=== PATIENT | male | born 1975 | race Caucasian/White ===

== ENCOUNTER 2018-01-15 01:22 | Emergency (ER) | payer SELFPAY ==
[2018-01-15] MEDS ORDERED: Donnatal Elixir 16.2 MG/5 ML UDCUP ONE ×2 (01:40→07:00)
[2018-01-15] MEDS ORDERED: Mag-Al Plus 1200 MG/1200 MG/120 MG/30 ML UDCUP ONE (01:40)
[2018-01-15] MEDS ORDERED: Ondansetron ODT 4 MG TAB ONE (01:40)
[2018-01-15] MEDS ORDERED: Lidocaine Viscous Sol 2% 15 ml UD Cup ONE (01:40)
[2018-01-15 01:55] LABS: #Basophils 0.2 thou/uL (0.0-0.2); #Eosinphils 0.5 thou/uL (0.0-0.7); #Lymphocytes 3.7 thou/uL (1.20-3.40); #Neutrophils 6.6 thou/uL (1.40-6.50); %Basophils 1.3 % (0.0-1.0); %Eosinophils 4.3 % (0.0-10.0); %Lymphocytes 30.9 % (21.0-51.0); %Monocytes 8.4 % (0.0-10.0); %Neutrophils 55.2 % (42.0-75.0); Hemoglobin 17.1 g/dL (14.0-18.0); Mean Corpuscular Hemoglobin 32.8 pg (27.0-31.0); Mean Corpuscular Volume 93.8 fL (78.0-98.0); Mean Platelet Volume 8.4 fL (7.4-10.4); Platelet Count 330 thou/uL (130-400); RBC Distribution Width 11.1 % (11.5-14.5); Red Blood Cell (RBC) Count 5.21 mill/uL (4.70-6.10); White Blood Cell (WBC) Count 11.9 thou/uL (4.8-10.8)
[2018-01-15] MEDS ORDERED: HYDROcodone/Acetaminophen 5/325 mg Tablet ONE ×2 (02:13→02:42)
[2018-01-15 02:17] LABS: ALT (SGPT) 46 U/L (8-55); AST (SGOT) 26 U/L (5-34); Albumin 4.7 g/dL (3.5-5.0); Alkaline Phosphatase 103 U/L (40-150); Anion Gap 16 mmol/L (10-20); BUN (Urea Nitrogen) 14 mg/dL (8.9-20.6); Calc. Creatinine Clearance 0 mL/min (70-130); Calcium 10.4 mg/dL (7.8-10.44); Carbon Dioxide 23 mmol/L (22-29); Chloride 105 mmol/L (98-107); Estimated GFR-MDRD 74; Glucose 103 mg/dL (70-105); Lipase 8 U/L (8-78); Potassium 4.2 mmol/L (3.5-5.1); Protein, Total 7.7 g/dL (6.0-8.3); Sodium 140 mmol/L (136-145)
[2018-01-15 02:19] LABS: Bilirubin, Total 1.4 mg/dL (0.2-1.2)
== END 2018-01-15 02:46 | disposition home or self-care (01) ==
LOC: MADERS 01:22
DX: K29.70 Gastritis, unspecified, without bleeding (principal); F17.210 Nicotine dependence, cigarettes, uncomplicated; Z87.442 Personal history of urinary calculi
CPT/HCPCS: 80053; 83690; 84484; 85025; 93005; Q0162

== ENCOUNTER 2018-02-05 02:18 | Emergency (ER) | payer SELFPAY ==
[2018-02-05] MEDS ORDERED: Ondansetron ODT 4 MG TAB ONE (02:33)
[2018-02-05] MEDS ORDERED: Lidocaine Viscous Sol 2% 15 ml UD Cup ONE ×2 (02:43→03:37)
[2018-02-05] MEDS ORDERED: Mag-Al Plus 1200 MG/1200 MG/120 MG/30 ML UDCUP ONE ×2 (02:43→03:37)
[2018-02-05] MEDS ORDERED: Promethazine HCl 25 MG/ML VIAL ONE (03:01)
[2018-02-05 03:27] LABS: #Basophils 0.2 thou/uL (0.0-0.2); #Eosinphils 0.1 thou/uL (0.0-0.7); #Lymphocytes 1.9 thou/uL (1.20-3.40); #Monocytes 0.5 thou/uL (0.11-0.59); %Basophils 0.9 % (0.0-1.0); %Eosinophils 0.5 % (0.0-10.0); %Lymphocytes 11.4 % (21.0-51.0); %Monocytes 2.9 % (0.0-10.0); %Neutrophils 84.3 % (42.0-75.0); Hemoglobin 17.5 g/dL (14.0-18.0); Mean Corpuscular HGB CONC 35.7 g/dL (32.0-36.0); Mean Corpuscular Hemoglobin 33.4 pg (27.0-31.0); Mean Corpuscular Volume 93.7 fL (78.0-98.0); Mean Platelet Volume 7.7 fL (7.4-10.4); Platelet Count 328 thou/uL (130-400); RBC Distribution Width 11.2 % (11.5-14.5); Red Blood Cell (RBC) Count 5.23 mill/uL (4.70-6.10); White Blood Cell (WBC) Count 16.6 thou/uL (4.8-10.8)
[2018-02-05 03:37] LABS: Bilirubin Small (Negative); Blood, Urine Moderate (Negative); Glucose, Urine (Dipstick) 100 mg/dL (Negative); Leukocyte Negative (Negative); Nitrite Negative (Negative); Protein, Urine (Dipstick) 100 mg/dL (Neg-Trace); Urobilinogen 0.2 mg/dL (0.2-1.0)
[2018-02-05 03:39] LABS: Clarity Hazy (Clear)
[2018-02-05 03:40] LABS: Specific Gravity, Urine 1.033 (1.002-1.036)
[2018-02-05 03:43] LABS: Bacteria/HPF None Seen HPF (None Seen); Squamous Epithelial 0-3 HPF (0-3); WBC/HPF 0-3 HPF (0-3)
[2018-02-05 03:46] LABS: ALT (SGPT) 52 U/L (8-55); AST (SGOT) 27 U/L (5-34); Albumin 4.6 g/dL (3.5-5.0); Alkaline Phosphatase 94 U/L (40-150); Anion Gap 17 mmol/L (10-20); BUN (Urea Nitrogen) 15 mg/dL (8.9-20.6); Calc. Creatinine Clearance 0 mL/min (70-130); Calcium 10.2 mg/dL (7.8-10.44); Carbon Dioxide 22 mmol/L (22-29); Chloride 108 mmol/L (98-107); Estimated GFR-MDRD 64; Globulin 3.3 g/dL (2.4-3.5); Glucose 128 mg/dL (70-105); Lipase 7 U/L (8-78); Potassium 4.1 mmol/L (3.5-5.1); Protein, Total 7.9 g/dL (6.0-8.3); Sodium 143 mmol/L (136-145)
[2018-02-05] MEDS ORDERED: Morphine 10 MG/ML VIAL ONE (04:00)
[2018-02-05] MEDS ORDERED: Ketorolac Tromethamine 30 MG/ML VIAL ONE (05:26)
--- NOTE | 2018-02-05 07:54 | CT ---
PRELIMINARY REPORT/[facility]/EMERGENTY AFTER-HOURS PROCEDURE CT Abdomen and Pelvis Without Intravenous Contrast EXAM DATE/TIME: 02/05/2018 4:25 AM CLINICAL HISTORY: 42 years old, male; Pain; Abdominal pain; Epigastric; Patient HX: Severe epigastric pain with vomitin g for the last 3 hours; Er doc concerned with possible aaa; Additional info: See above TECHNIQUE: Axial computed tomography images of the abdomen and pelvis without intravenous contrast. All CT scans at this facility use at least one of these dose optimization techniques: automated exposure control; mA and/or kV adjustment per patient size (includes targeted exams where dose is matched to clinical indication); or iterative reconstruction. Coronal reformatted images were created and reviewed. COMPARISON: No relevant prior studies available. FINDINGS: Lower thorax: There is subpleural atelectasis of the dependent portions of the lungs. There are bilat eral upper lobe subpleural nodules. ABDOMEN: Liver: There is a diffuse decrease in hepatic parenchymal density, consistent with mild fatty infiltr ation. Gallbladder and bile ducts: There is a 2.3 cm gallstone at the gallbladder neck. Pancreas: The pancreas appears normal. Spleen: The spleen is normal. Adrenals: The adrenal glands are normal. Kidneys and ureters: The left kidney is normal. There is a 10 x 8mm calculus within the RIGHT renal p alex with mild inflammatory stranding. No significant RIGHT hydronephrosis at this time. Stomach and bowel: The stomach is normal. The duodenum is unremarkable. The colon is collapsed but ot herwise normal. There is no evidence of intestinal perforation or obstruction. Appendix: A normal appendix is identified. PELVIS: Bladder: Unremarkable as visualized. Reproductive: The prostate gland and seminal vesicles are normal. ABDOMEN and PELVIS: Intraperitoneal space: Normal. No free air. No significant fluid collection. Bones/joints: No acute fracture. No dislocation. Soft tissues: Unremarkable. Vasculature: Normal. No abdominal aortic aneurysm. Lymph nodes: Normal. No enlarged lymph nodes. IMPRESSION: 1. There is a 2.3 cm gallstone at the gallbladder neck. If acute cholecystitis is suspected, RIGHT up per quadrant ultrasound may be performed for further characterization. 2. There is a 10 x 8mm calculus within the RIGHT renal pelvis with mild inflammatory stranding. No si gnificant RIGHT hydronephrosis at this time. 3. No abdominal aortic aneurysm. Thank you for allowing us to participate in the care of your patient. Dictated and Authenticated by: Luis Eduardo Nunn MD 02/05/2018 5:04 AM Central Time ([place] & [place]) FINAL REPORT ABDOMEN CT WITHOUT CONTRAST PELVIC CT WITHOUT CONTRAST: History: Abdominal pain. Vomiting. FINDINGS: This report is in agreement with the preliminary report by [facility]. There is CT evidence of cholelithiasi s without CT evidence of cholecystitis. There is right sided obstructive uropathy, mild, secondary a 1.3 cm calculus in the right renal pelvis. Inflammatory change is confined to the pelvis. No signific ant caliceal dilatation or ureteral dilation. Normal caliber appendix. POS: [facility]
[2018-02-05] MEDS ORDERED: Sodium Chloride 0.9% 1,000 ML BAG ONE (14:40)
== END 2018-02-05 07:30 | disposition home or self-care (01) ==
LOC: MADERS 02:18
DX: K80.20 Calculus of gallbladder without cholecystitis without obstruction (principal); N13.2 Hydronephrosis with renal and ureteral calculous obstruction; F17.210 Nicotine dependence, cigarettes, uncomplicated; Z79.899 Other long term (current) drug therapy
CPT/HCPCS: 74176; 80053; 81003; 81015; 83690; 84484; 85025; 93005; 96361; 96374; 96375; J1885; J2270; J2550; J7050; Q0162

== ENCOUNTER 2018-04-22 04:01 | Emergency (ER) | payer SELFPAY ==
[2018-04-22] MEDS ORDERED: Promethazine HCl 25 MG/ML VIAL ONE (04:25)
[2018-04-22] MEDS ORDERED: Ketorolac Tromethamine 30 MG/ML VIAL ONE (04:25)
[2018-04-22] MEDS ORDERED: Sodium Chloride 0.9% 100 ML ONE (04:25)
[2018-04-22 04:34] LABS: #Basophils 0.2 thou/uL (0.0-0.2); #Eosinphils 0.4 thou/uL (0.0-0.7); #Lymphocytes 3.6 thou/uL (1.20-3.40); #Monocytes 0.8 thou/uL (0.11-0.59); %Basophils 1.5 % (0.0-1.0); %Eosinophils 3.8 % (0.0-10.0); %Lymphocytes 32.7 % (21.0-51.0); %Monocytes 7.4 % (0.0-10.0); %Neutrophils 54.5 % (42.0-75.0); Hemoglobin 17.4 g/dL (14.0-18.0); Mean Corpuscular HGB CONC 33.8 g/dL (32.0-36.0); Mean Corpuscular Hemoglobin 32.2 pg (27.0-31.0); Mean Corpuscular Volume 95.4 fL (78.0-98.0); Mean Platelet Volume 8.2 fL (7.4-10.4); Platelet Count 346 thou/uL (130-400); RBC Distribution Width 11.9 % (11.5-14.5); Red Blood Cell (RBC) Count 5.41 mill/uL (4.70-6.10)
[2018-04-22 04:53] LABS: ALT (SGPT) 39 U/L (8-55); AST (SGOT) 22 U/L (5-34); Albumin 4.6 g/dL (3.5-5.0); Alkaline Phosphatase 102 U/L (40-150); Anion Gap 15 mmol/L (10-20); BUN (Urea Nitrogen) 20 mg/dL (8.9-20.6); Bilirubin, Total 1.1 mg/dL (0.2-1.2); Calc. Creatinine Clearance 0 mL/min (70-130); Carbon Dioxide 25 mmol/L (22-29); Chloride 106 mmol/L (98-107); Estimated GFR-MDRD 71; Globulin 3.3 g/dL (2.4-3.5); Glucose 121 mg/dL (70-105); Lipase 27 U/L (8-78); Potassium 3.9 mmol/L (3.5-5.1); Protein, Total 7.9 g/dL (6.0-8.3); Sodium 142 mmol/L (136-145)
[2018-04-22 05:05] LABS: Bilirubin Negative (Negative); Blood, Urine Moderate (Negative); Glucose, Urine (Dipstick) Negative (Negative); Leukocyte Negative (Negative); Nitrite Negative (Negative); Protein, Urine (Dipstick) 100 mg/dL (Neg-Trace); Urobilinogen 0.2 mg/dL (0.2-1.0); pH, Urine 5.5 (5.0-9.0)
[2018-04-22 05:10] LABS: Clarity Hazy (Clear); Specific Gravity, Urine 1.032 (1.002-1.036)
[2018-04-22 05:11] LABS: Bacteria/HPF Rare-Few HPF (None Seen); Squamous Epithelial 0-3 HPF (0-3); WBC/HPF 0-3 HPF (0-3)
[2018-04-22 05:12] LABS: Amphetamine Not Detected (NotDetected); Barbiturates Screen Not Detected (NotDetected); Benzodiazepine Screen Not Detected (NotDetected); Cocaine Metabolite Screen Not Detected (NotDetected); Medtox Control Line Valid? VALID (VALID); Methadone Not Detected (NotDetected); Methamphetamine Not Detected (NotDetected); Opiate Screen Not Detected (NotDetected); Oxycodone Screen Not Detected (NotDetected); Phencyclidine (PCP) Not Detected (NotDetected); THC/Cannabinoid Screen Not Detected (NotDetected); Tricyclic Screen Not Detected (NotDetected)
--- NOTE | 2018-04-22 09:09 | RAD ---
ACUTE ABDOMINAL SERIES: DATE: 04/22/2018. HISTORY: Abdominal pain. FINDINGS: CHEST X-RAY: Comparison to study on 11/22/2010. Cardiac silhouette and pulmonary vasculature are within normal limits. Lungs remain clear. There valencia s been no interval change from the prior exam. No free intraperitoneal air is seen beneath the hemid iaphragm. UPRIGHT AND SUPINE VIEWS OF THE ABDOMEN: The bowel gas pattern is overall nonspecific. There is a calcification seen overlying the right uppe r quadrant which overlies the expected location of the right renal pelvis. Right renal calculus was seen on the CT exam on 02/05/2018. No additional suspicious calcifications are seen. Mild degenerat trey changes are seen in the spine. IMPRESSION: 1. Nonspecific bowel gas pattern. 2. Calculus right upper quadrant overlying the expected location of the right renal pelvis, and a ca lculus was seen in this region on CT exam on 02/05/2018. POS: [facility]
== END 2018-04-22 05:41 | disposition short-term general hospital (02) ==
LOC: MADERS 04:01
DX: K80.80 Other cholelithiasis without obstruction (principal); F17.210 Nicotine dependence, cigarettes, uncomplicated; Z87.442 Personal history of urinary calculi; Z79.899 Other long term (current) drug therapy
CPT/HCPCS: 74022; 80053; 80306; 81001; 82150; 83690; 85025; 96374; 96375; J1885; J2550; J7050